=== PATIENT | male | born 1980 | race Caucasian/White ===

== ENCOUNTER 2017-07-07 01:47 | Observation (INO) | payer MEDICAID ==
[~2017-07-07] VITALS: Ht 170.2 cm; Wt 74.7 kg
[2017-07-07] MEDS ORDERED: ZIPRASIDONE 20 MG INJ IM ONE ×2 (02:09→02:30)
[2017-07-07 02:31] LABS: BASOPHILS # (AUTO) 0.03 x10^3/uL (0-0.1); BASOPHILS % (AUTO) 0 % (0-1); EOSINOPHILS % (AUTO) 3 % (1-7); LYMPHOCYTES # (AUTO) 2.93 x10^3/uL (1-3.4); LYMPHOCYTES % (AUTO) 30 % (22-44); MD NO; MEAN CORPUSCULAR HEMOGLOBIN 30.7 pg (27.5-34.5); MEAN CORPUSCULAR HGB CONC 34.2 g/dL (33.2-36.2); MEAN CORPUSCULAR VOLUME 89.7 fL (81-97); MEAN PLATELET VOLUME 8.2 fL (7.4-10.4); MONOCYTES % (AUTO) 9 % (2-9); NEUTROPHILS # (AUTO) 5.76 x10^3/uL (1.8-6.8); NEUTROPHILS % (AUTO) 58 % (42-75); PLATELET COUNT 329 x10^3/uL (130-400); RED BLOOD COUNT 5.62 x10^6/uL (4.38-5.82); RED CELL DISTRIBUTION WIDTH 13.1 % (9.4-14.8)
[2017-07-07 02:39] LABS: ACETAMINOPHEN < 2 mcg/mL (10-30); ALBUMIN 3.7 g/dL (3.4-5.0); ANION GAP 3 mmol/L (5-15); CALCIUM 8.3 mg/dL (8.5-10.1); CHLORIDE 104 mmol/L (98-107); CREATININE 0.78 mg/dL (0.7-1.3); SALICYLATE LEVEL < 1.7 mg/dL (2.8-20.0)
[2017-07-07 02:51] LABS: AMPHETAMINE SCREEN, URINE Positive (Negative); BARBITURATE SCREEN, URINE Negative (Negative); BENZODIAZEPINE SCREEN, URINE Negative (Negative); CANNABINOID SCREEN, URINE Positive (Negative); COCAINE SCREEN, URINE Negative (Negative); METHADONE SCREEN, URINE Negative (Negative); OPIATE SCREEN, URINE Negative (Negative)
[2017-07-07] MEDS ORDERED: SODIUM CHLORIDE 0.9% 1,000 ML IV ONE (10:12)
[2017-07-07] MEDS ORDERED: SODIUM CHLORIDE FLUSH 10ML SYR IVF ONE (10:30)
[2017-07-07] MEDS ORDERED: ONDANSETRON ODT 4 MG PO PRN (11:30)
[2017-07-07] MEDS ORDERED: POLYETHYLENE GLYCOL 17 GM PACKET PO PRN (11:30)
[2017-07-07] MEDS ORDERED: ACETAMINOPHEN 325 MG TABLET PO PRN (11:30)
[2017-07-07 11:59] LABS: FREE T4 (FREE THYROXINE) 1.04 ng/dL (0.76-1.46); THYROID STIMULATING HORMONE 1.57 mIU/L (0.358-3.740)
[2017-07-07] MEDS: LORazepam 1MG TABLET PO PRN (17:23)
[2017-07-07 20:15] VITALS: BP 128/80
[2017-07-08] MEDS: LORazepam 1MG TABLET PO PRN (00:29)
[2017-07-08] MEDS ORDERED: HALOPERIDOL 5 MG/ML IV ONE (01:00)
[2017-07-08 07:43] LABS: BASOPHILS # (AUTO) 0.03 x10^3/uL (0-0.1); BASOPHILS % (AUTO) 0 % (0-1); EOSINOPHILS # (AUTO) 0.18 x10^3/uL (0-0.4); EOSINOPHILS % (AUTO) 2 % (1-7); LYMPHOCYTES # (AUTO) 1.45 x10^3/uL (1-3.4); LYMPHOCYTES % (AUTO) 16 % (22-44); MD NO; MEAN CORPUSCULAR HEMOGLOBIN 30.5 pg (27.5-34.5); MEAN CORPUSCULAR VOLUME 89.6 fL (81-97); MEAN PLATELET VOLUME 8.2 fL (7.4-10.4); MONOCYTES # (AUTO) 0.79 x10^3/uL (0.2-0.8); MONOCYTES % (AUTO) 9 % (2-9); NEUTROPHILS % (AUTO) 73 % (42-75); PLATELET COUNT 241 x10^3/uL (130-400); RED BLOOD COUNT 5.82 x10^6/uL (4.38-5.82); RED CELL DISTRIBUTION WIDTH 13.5 % (9.4-14.8)
[2017-07-08 07:47] LABS: ANION GAP 5 mmol/L (5-15); CALCIUM 8.7 mg/dL (8.5-10.1); CHLORIDE 105 mmol/L (98-107); CREATININE 0.76 mg/dL (0.7-1.3)
[2017-07-08 08:00] VITALS: BP 124/71
[2017-07-08] MEDS: SENNA/DOCUSATE TABLET PO SCH (09:00)
[2017-07-08 20:21] VITALS: BP 101/53
[2017-07-09 05:46] LABS: BASOPHILS # (AUTO) 0.04 x10^3/uL (0-0.1); BASOPHILS % (AUTO) 0 % (0-1); EOSINOPHILS % (AUTO) 2 % (1-7); LYMPHOCYTES # (AUTO) 1.95 x10^3/uL (1-3.4); LYMPHOCYTES % (AUTO) 21 % (22-44); MD NO; MEAN CORPUSCULAR HEMOGLOBIN 30.5 pg (27.5-34.5); MEAN CORPUSCULAR HGB CONC 33.7 g/dL (33.2-36.2); MEAN CORPUSCULAR VOLUME 90.5 fL (81-97); MEAN PLATELET VOLUME 8.2 fL (7.4-10.4); MONOCYTES # (AUTO) 0.87 x10^3/uL (0.2-0.8); MONOCYTES % (AUTO) 9 % (2-9); NEUTROPHILS # (AUTO) 6.35 x10^3/uL (1.8-6.8); NEUTROPHILS % (AUTO) 68 % (42-75); PLATELET COUNT 273 x10^3/uL (130-400); RED BLOOD COUNT 5.44 x10^6/uL (4.38-5.82); RED CELL DISTRIBUTION WIDTH 13.4 % (9.4-14.8)
[2017-07-09 05:57] LABS: ALBUMIN 3.1 g/dL (3.4-5.0); ANION GAP 7 mmol/L (5-15); CALCIUM 8.4 mg/dL (8.5-10.1); CHLORIDE 105 mmol/L (98-107)
[2017-07-09 06:02] LABS: ALANINE AMINOTRANSFERASE 44 U/L (12-78); ALKALINE PHOSPHATASE 91 U/L (45-117); BILIRUBIN,TOTAL 0.5 mg/dL (0.2-1.0); CREATININE 0.75 mg/dL (0.7-1.3)
[2017-07-09] MEDS: LORazepam 1MG TABLET PO PRN (08:04)
[2017-07-09] MEDS: SENNA/DOCUSATE TABLET PO SCH (08:05)
[2017-07-09] MEDS ORDERED: DIPHENHYDRAMINE 50 MG/ML, 1ML IM PRN (15:00)
[2017-07-09] MEDS ORDERED: HALOPERIDOL 2 MG/ML ORAL SOL PO PRN (15:00)
[2017-07-09] MEDS ORDERED: HALOPERIDOL 5 MG TABLET PO PRN ×2 (15:52→16:00)
[2017-07-09] MEDS: DIPHENHYDRAMINE 25 MG CAPSULE PO PRN (19:25)
[2017-07-09] MEDS: LORazepam 2 MG/ML, 1ML IM PRN (19:25)
[2017-07-09] MEDS: HALOPERIDOL 5 MG/ML IM PRN (19:26)
[2017-07-09 19:37] VITALS: BP 131/83
[2017-07-10 07:58] VITALS: BP 115/70
[2017-07-10] MEDS: SENNA/DOCUSATE TABLET PO SCH (08:57)
[2017-07-10 20:00] VITALS: BP 124/85
[2017-07-10] MEDS: HALOPERIDOL 5 MG TABLET PO SCH (20:48)
[2017-07-11] MEDS: DIPHENHYDRAMINE 25 MG CAPSULE PO PRN ×2 (02:17→20:27)
[2017-07-11] MEDS: HALOPERIDOL 5 MG/ML IM PRN (02:17)
[2017-07-11] MEDS: LORazepam 2 MG/ML, 1ML IM PRN (02:17)
[2017-07-11 07:30] VITALS: BP 114/72
[2017-07-11] MEDS: HALOPERIDOL 5 MG TABLET PO SCH ×2 (08:25→20:21)
[2017-07-11] MEDS: SENNA/DOCUSATE TABLET PO SCH (08:26)
[2017-07-11 20:24] VITALS: BP 119/82
[2017-07-11] MEDS: LORazepam 1MG TABLET PO PRN (20:27)
[2017-07-12 08:02] VITALS: BP 132/93
[2017-07-12] MEDS: SENNA/DOCUSATE TABLET PO SCH (08:12)
[2017-07-12] MEDS: LORazepam 1MG TABLET PO PRN (08:12)
[2017-07-12] MEDS: DIPHENHYDRAMINE 25 MG CAPSULE PO PRN ×2 (08:12→22:24)
[2017-07-12] MEDS: HALOPERIDOL 5 MG TABLET PO SCH ×2 (08:13→22:24)
[2017-07-12 22:22] VITALS: BP 112/64
[2017-07-13 08:42] VITALS: BP 149/97
[2017-07-13] MEDS: LORazepam 1MG TABLET PO PRN ×2 (08:47→15:47)
[2017-07-13] MEDS: HALOPERIDOL 5 MG TABLET PO SCH ×2 (08:47→21:00)
[2017-07-13] MEDS: SENNA/DOCUSATE TABLET PO SCH (08:48)
[2017-07-13] MEDS: DIPHENHYDRAMINE 25 MG CAPSULE PO PRN (15:49)
[2017-07-13 20:00] VITALS: BP 114/67
[2017-07-14] MEDS: HALOPERIDOL 5 MG/ML IM PRN (00:50)
[2017-07-14] MEDS: LORazepam 2 MG/ML, 1ML IM PRN (00:50)
== END 2017-07-14 02:52 | disposition home or self-care (01) ==
LOC: ED 03:25 → INTOOBSV 10:12 → EDIP 10:12 → 2N 14:03
PROVIDERS: ADMIT Internal Medicine; ATTEND Internal Medicine
DX: R45.851 Suicidal ideations (principal); F29 Unspecified psychosis not due to a substance or known physiological condition; F32.9 Major depressive disorder, single episode, unspecified; F41.9 Anxiety disorder, unspecified; E44.0 Moderate protein-calorie malnutrition; F15.20 Other stimulant dependence, uncomplicated; F12.10 Cannabis abuse, uncomplicated; Z91.14 Patient's other noncompliance with medication regimen
CPT/HCPCS: 36415; 80048; 80053; 80307; 80329; 82040; 84439; 84443; 85025; 96372; 96374; 99285; G0378; J1630; J2060; J3486; Q0163; G0479; G0480